=== PATIENT | female | born 1975 | race Caucasian/White ===

== ENCOUNTER 2021-10-09 13:50 | Inpatient (IN) | payer OTHER ==
[2021-10-09 14:59] VITALS: BMI 26.3
[2021-10-09] MEDS ORDERED: ELECTROLYTE-148 SOLN 1,000 ML IV SCH (15:15)
[2021-10-09] MEDS ORDERED: OXYTOCIN 30 UNITS in 0.9% NS 30 UNIT/500 ML INFUS.BAG IVPB SCH (15:15)
[2021-10-09] MEDS ORDERED: OXYTOCIN 30 UNITS in 0.9% NS 30 UNIT/500 ML INFUS.BAG IVPB ONE (15:38)
[2021-10-09 15:50] LABS: BASO % 0.3 % (0-2.0); EOS % 0.4 % (0-4.5); HEMATOCRIT 36.7 % (32.4-45.2); HEMOGLOBIN 12.1 GM/dL (10.7-15.3); LYMPH % 14.7 % (8-40); MCH 30.5 pg (25.7-33.7); MCHC 32.9 g/dl (32.0-36.0); MEAN CELL VOLUME 92.8 fl (80-96); MEAN PLT VOLUME 13.1 fl (7.5-11.1); MONO % 5.9 % (3.8-10.2); NEUT % 78.7 % (42.8-82.8); PLATELET COUNT 87 10^3/uL (134-434); RBC 3.96 M/mm3 (3.60-5.2); WHITE BLOOD COUNT 12.3 K/mm3 (4.0-10.0)
[2021-10-09 16:15] LABS: CALCIUM 9.1 mg/dL (8.5-10.1)
[2021-10-09 16:16] LABS: BLOOD UREA NITROGEN 14.2 mg/dL (7-18)
[2021-10-09 16:20] LABS: CREATININE 0.8 mg/dL (0.55-1.3)
[2021-10-09 17:11] LABS: HIV INTERPRETATION NEGATIVE (NEGATIVE)
[2021-10-09 17:34] LABS: INR 0.98 (0.83-1.09); PROTHROMBIN TIME (PATIENT) 11.3 SEC (9.7-13.0)
[2021-10-09 17:36] LABS: ACTIVATED PTT 25.4 SECONDS (25.2-36.5)
[2021-10-09 17:43] LABS: PLATELET ESTIMATE DECREASED
[2021-10-09] MEDS ORDERED: FENTANYL/BUPIVACAINE/NS/PF - PCEA - 50 ML DISP.SYRIN EP ONE (18:49)
[2021-10-09] MEDS ORDERED: NALOXONE HCL 0.4 MG/ML VIAL IVPUSH PRN ×2 (19:01→21:42)
[2021-10-09] MEDS ORDERED: BUPIVACAINE HCL/PF 0.25% (2.5MG/ML) 10 ML VIAL ONE (19:07)
[2021-10-09] MEDS ORDERED: FENTANYL/BUPIVACAINE/NS/PF - PCEA - 50 ML DISP.SYRIN EP SCH ×3 (19:15→21:45)
[2021-10-09] MEDS ORDERED: DEXTROSE 5%-LACTATED RINGERS 1,000 ML IV SCH (21:45)
[2021-10-10] MEDS ORDERED: OXYTOCIN 20 UNITS in 0.9% NS 20 UNIT/1,000 ML INFUS.BAG IV ONE (00:13)
[2021-10-10] MEDS ORDERED: LIDOCAINE HCL 1% PRESERVATIVE FREE - 30ML VIAL ONE (00:30)
[2021-10-10] MEDS ORDERED: METHYLERGONOVINE MALEATE 0.2 MG/1 ML AMP IM PRN (01:01)
[2021-10-10] MEDS ORDERED: BENZOCAINE 20% 57 GM BOTTLE TP PRN (01:01)
[2021-10-10] MEDS ORDERED: BISACODYL 10 MG SUPP.RECT RC PRN (01:01)
[2021-10-10] MEDS ORDERED: ACETAMINOPHEN 325 MG TABLET (FP) PO PRN (01:01)
[2021-10-10] MEDS ORDERED: WITCH HAZEL 50% (TUCKS) 40 PAD/JAR PAD TP PRN (01:01)
[2021-10-10] MEDS ORDERED: oxyCODONE HCL 5 MG TABLET PO PRN (01:01)
[2021-10-10] MEDS ORDERED: BENZOCAINE 28 GM HEMORRHOIDAL OINTMENT TP PRN (01:01)
[2021-10-10] MEDS ORDERED: OXYTOCIN 20 UNITS in 0.9% NS 20 UNIT/1,000 ML INFUS.BAG IV SCH (01:15)
[2021-10-10] MEDS: IBUPROFEN 600 MG TABLET (FP) PO PRN ×3 (09:44→21:49)
[2021-10-10] MEDS: PRENATAL VITAMINS W/ FOLIC ACID TABLET (FP) PO SCH (09:45)
[2021-10-10] MEDS ORDERED: FLU VACC QS2021-22(6MOS UP)/PF 60 MCG/0.5 ML SYRINGE IM ONE (10:00)
[2021-10-10 22:04] VITALS: PULSE 76
[2021-10-11 07:43] LABS: BASO % 0.2 % (0-2.0); EOS % 1.3 % (0-4.5); HEMATOCRIT 31.1 % (32.4-45.2); HEMOGLOBIN 10.3 GM/dL (10.7-15.3); LYMPH % 16.8 % (8-40); MCH 30.8 pg (25.7-33.7); MCHC 32.9 g/dl (32.0-36.0); MEAN CELL VOLUME 93.6 fl (80-96); MEAN PLT VOLUME 12.8 fl (7.5-11.1); MONO % 7.6 % (3.8-10.2); NEUT % 74.1 % (42.8-82.8); PLATELET COUNT 74 10^3/uL (134-434); RBC 3.33 M/mm3 (3.60-5.2); RDW 14.4 % (11.6-15.6); WHITE BLOOD COUNT 12.2 K/mm3 (4.0-10.0)
[2021-10-11] MEDS: IBUPROFEN 600 MG TABLET (FP) PO PRN (08:20)
[2021-10-11 09:26] LABS: PLATELET ESTIMATE DECREASED
[2021-10-11] MEDS: PRENATAL VITAMINS W/ FOLIC ACID TABLET (FP) PO SCH (11:18)
[2021-10-11 15:56] VITALS: BP 101/68; TEMP 97.6
[2021-10-11] MEDS ORDERED: SENNOSIDES/DOCUSATE COMBO (SENNA PLUS) TABLET (UD) PO PRN (22:00)
== END 2021-10-11 15:12 | disposition home or self-care (01) | DRG 807 ==
LOC: JLDR 13:50 → J3W 10-10 02:30
PROVIDERS: ADMIT Obstetrics & Gynecology; ATTEND Obstetrics & Gynecology
PROC: 10907ZC Drainage of Amniotic Fluid, Therapeutic from Products of Conception, Via Natural or Artificial Opening (ICD-10-PCS; 2021-10-09)
PROC: 10E0XZZ Delivery of Products of Conception, External Approach (ICD-10-PCS; principal; 2021-10-10)
PROC: 0W8NXZZ Division of Female Perineum, External Approach (ICD-10-PCS; 2021-10-10)
DX: O41.03X0 Oligohydramnios, third trimester, not applicable or unspecified (principal); Z37.0 Single live birth; O48.0 Post-term pregnancy; Z3A.40 40 weeks gestation of pregnancy
CPT/HCPCS: 36415; 59409; 80048; 85025; 85610; 85730; 86780; 86850; 86900; 86901; 87389; 90686; C9803; G0008; U0003; U0005